=== PATIENT | female | born 1985 | race Caucasian/White ===

== ENCOUNTER 2019-06-23 12:54 | Inpatient (IN) | payer BC ==
[2019-06-23 13:52] VITALS: BMI 24.3
--- NOTE | 2019-06-23 14:49 | HP ---
CIWA Score Nausea/Vomitin-No Nausea/No Vomiting Muscle Tremors: 2 Anxiety: 4-Mod. Anxious/Guarded Agitation: 4-Moderately Restless Paroxysmal Sweats: 1-Minimal Palms Moist Orientation: 0-Oriented Tacttile Disturbances: 1-Very Mild Itch/Numbness Auditory Disturbances: 0-None Visual Disturbances: 1-Very Mild Sensitivity Headache: 3-Moderate CIWA-Ar Total Score: 16 - Admission Criteria OASAS Guidelines: Admission for Medically Managed Detox: Requires at least one of the followin. CIWA greater than 12 2. Seizures within the past 24 hours 3. Delirium tremens within the past 24 hours 4. Hallucinations within the past 24 hours 5. Acute intervention needed for co occurring medical disorder 6. Acute intervention needed for co occurring psychiatric disorder 7. Severe withdrawal that cannot be handled at a lower level of care (continued vomiting, continued diarrhea, abnormal vital signs) requiring intravenous medication and/or fluids 8. Patient presents the following: CIWA greater than 12 Admission Criteria Met: Admission criteria met Admission ROS [facility] Chief Complaint: alcohol detox Allergies/Adverse Reactions: Allergies Allergy/AdvReac Type Severity Reaction Status Date / Time No Known Allergies Allergy Verified 06/23/19 13:43 History of Present Illness: Patient is a 33 yo female with hx of alcohol, marijuana and cocaine dependence is here seeking inpatient alcohol detox d/t [facility], reports first time seeking treatment. PMHX: anemia and Eczema. Psych: major depressive d/o. Reports hx of suicide attempt x 1. Denies SI/HI at this time. Exam Limitations: No Limitations - Ebola screening Have you traveled outside of the country in the last 21 days: No Have you had contact with anyone from an Ebola affected area: No Do you have a fever: No - Review of Systems Constitutional: Chills, Loss of Appetite, Other (anxious, restless) EENT: reports: No Symptoms Reported Respiratory: reports: No Symptoms reported Cardiac: reports: No Symptoms Reported GI: reports: Poor Appetite, Poor Fluid Intake, Indigestion : reports: No Symptoms Reported Musculoskeletal: reports: Back Pain Integumentary: reports: Rash (left back pf leg d/t sczema) Neuro: reports: Headache Endocrine: reports: No Symptoms Reported Hematology: reports: No Symptoms Reported Psychiatric: reports: Orientated x3, Anxious Other Systems: Reviewed and Negative Patient History - Patient Medical History Hx Anemia: Yes Hx Asthma: No Hx Chronic Obstructive Pulmonary Disease (COPD): No Hx Cancer: No Hx Cardiac Disorders: No Hx Congestive Heart Failure: No Hx Hypertension: No Hx Hypercholesterolemia: No Hx Pacemaker: No HX Cerebrovascular Accident: No Hx Seizures: No Hx Dementia: No Hx Diabetes: No Hx Gastrointestinal Disorders: No Hx Liver Disease: No Hx Genitourinary Disorders: No Hx Sexually Transmitted Disorders: No Hx Renal Disease (ESRD): No Hx Thyroid Disease: No Hx Human Immunodeficiency Virus (HIV): No Hx Hepatitis C: No Hx Depression: Yes Hx Suicide Attempt: Yes (x1 in 2017) Hx Bipolar Disorder: No Hx Schizophrenia: No - Patient Surgical History Past Surgical History: Yes Other Surgical History: scoliosis, right dumb fx - PPD History Previous Implant?: No PPD to be Administered?: Yes - Reproductive History Patient is a Female of Child Bearing Age (11 -55 yrs old): Yes Last Menstrual Period: 06/03/19 Patient : No - Smoking Cessation Smoking history: Current every day smoker Have you smoked in the past 12 months: Yes Aproximately how many cigarettes per day: 20 Hx Chewing Tobacco Use: No Initiated information on smoking cessation: Yes 'Breaking Loose' booklet given: 06/23/19 - Substance & Tx. History Hx Alcohol Use: Yes Hx Substance Use: Yes Substance Use Type: Cocaine, Marijuana - Substances abused Cocaine Substance route: Inhalation Frequency: 3-6 times per week Amount used: $200 Age of first use: 28 Date of last use: 06/23/19 Alcohol Substance route: Oral Frequency: 3-6 times per week Amount used: 12 beers x 24 oz Age of first use: 17 (increase drinking to currenty amount in past four years ) Date of last use: 06/23/19 Family Disease History - Family Disease History Family Disease History: Diabetes: Father (alcoholism, cancer deacease ), Mother (cancer ), CA: Father, Mother, Other: Father Admission Physical Exam BHS - Vital Signs Vital Signs: Vital Signs - 24 hr 06/23/19 13:46 Temperature 99.0 F Pulse Rate 107 H Respiratory 20 Rate Blood Pressure 134/77 - Physical General Appearance: Yes: Appropriately Dressed, Thin, Anxious, Other (flushed) HEENTM: Yes: EOMI, Hearing grossly Normal, Normal ENT Inspection, Pharynx Normal Respiratory: Yes: Chest Non-Tender, Lungs Clear, Normal Breath Sounds, No Respiratory Distress, No Accessory Muscle Use Neck: Yes: Within Normal Limits Breast: Yes: Breast Exam Deferred Cardiology: Yes: Regular Rhythm, Tachycardia Abdominal: Yes: Normal Bowel Sounds, Non Tender, Flat, Soft Genitourinary: Yes: Within Normal Limits Back: Yes: Normal Inspection Musculoskeletal: Yes: full range of Motion, Gait Steady, Pelvis Stable Extremities: Yes: Normal Capillary Refill, Normal Inspection, Normal Range of Motion, Non-Tender Neurological: Yes: university controller II-XII NML intact, Fully Oriented, Alert, Motor Strength 5/5, Depressed Affect Integumentary: Yes: Normal Color, Warm, Rash (back left knee no cellulitis) Lymphatic: Yes: Within Normal Limits - Diagnostic (1) Alcohol dependence with uncomplicated withdrawal Current Visit: Yes Status: Acute (2) Cocaine dependence, uncomplicated Current Visit: Yes Status: Acute (3) Nicotine dependence Current Visit: Yes Status: Chronic Qualifiers: Nicotine product type: cigarettes (4) Eczema Current Visit: Yes Status: Chronic Cleared for Admission S - Detox or Rehab [facility] Level of Care: Medically Managed Detox Regimen/Protocol: Librium Breathalyzer - Breathalyzer Breathalyzer: 0.058 Urine Drug Screen - Test Device Lot number: [id number] Expiration date: 03/25/21 - Control Is test valid?: Yes - Results Drug screen NEGATIVE: No Urine drug screen results: THC-Marijuana, CHARITY-Cocaine Inpatient Rehab Admission - Rehab Decision to Admit Inpatient rehab admission?: No
[2019-06-23] MEDS ORDERED: IBUPROFEN 400 MG TABLET (FP) PO PRN (14:52)
[2019-06-23] MEDS ORDERED: BISMUTH SUBSALICYLATE 262 MG/15 ML BTL PO PRN (14:52)
[2019-06-23] MEDS ORDERED: chlordiazePOXIDE HCL 25 MG CAPSULE PO PRN (14:52)
[2019-06-23] MEDS ORDERED: ACETAMINOPHEN 325 MG TABLET (FP) PO PRN ×2 (14:52)
[2019-06-23] MEDS ORDERED: MAG HYDROX/AL HYDROX/SIMETH 30 ML UNIT-DOSE CUP PO PRN (14:52)
[2019-06-23] MEDS ORDERED: MAGNESIUM CITRATE 300 ML BOTTLE PO PRN (14:52)
[2019-06-23] MEDS ORDERED: MAGNESIUM HYDROX 2400MG/30ML ORAL SUSPENSION 30 ML CUP PO PRN (14:52)
[2019-06-23] MEDS ORDERED: MENTHOL/PHENOL 1 EACH UD MM PRN (14:52)
[2019-06-23] MEDS ORDERED: MELATONIN 5 MG TABLETS PO PRN (14:52)
[2019-06-23] MEDS ORDERED: NICOTINE POLACRILEX 2 MG GUM BUC PRN (14:52)
[2019-06-23] MEDS: chlordiazePOXIDE HCL 25 MG CAPSULE PO SCH ×2 (17:17→22:12)
[2019-06-23] MEDS: THIAMINE HCL 100 MG TABLET (FP) PO SCH (22:12)
[2019-06-24] MEDS: chlordiazePOXIDE HCL 25 MG CAPSULE PO SCH ×4 (05:57→22:20)
[2019-06-24 10:00] LABS: HEMATOCRIT 36.6 % (32.4-45.2); HEMOGLOBIN 12.3 GM/dL (10.7-15.3); MCHC 33.7 g/dl (32.0-36.0); MEAN CELL VOLUME 89.1 fl (80-96); MEAN PLT VOLUME 7.1 fl (7.5-11.1); PLATELET COUNT 363 K/MM3 (134-434); RDW 14.6 % (11.6-15.6); WHITE BLOOD COUNT 5.1 K/mm3 (4.0-10.0)
[2019-06-24] MEDS: PRENATAL VITAMINS W/ FOLIC ACID TABLET (FP) PO SCH (10:04)
[2019-06-24] MEDS: NICOTINE 14 MG/24 HOURS TOPICAL PATCH TD SCH (10:04)
[2019-06-24 10:06] LABS: ALBUMIN 3.3 g/dl (3.4-5.0); BILIRUBIN,TOTAL 1.6 mg/dL (0.2-1); BLOOD UREA NITROGEN 9.6 mg/dL (7-18); CALCIUM 8.6 mg/dL (8.5-10.1); CREATININE 0.7 mg/dL (0.55-1.3); POTASSIUM 3.8 mmol/L (3.5-5.1); TOT PROT 6.1 g/dl (6.4-8.2)
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
[2019-06-24] MEDS: ESCITALOPRAM OXALATE 20 MG TABLET (FP) PO SCH (11:36)
--- NOTE | 2019-06-24 11:54 | EKG ---
Test Reason : Blood Pressure : / mmHG Vent. Rate : 091 BPM Atrial Rate : 091 BPM P-R Int : 154 ms QRS Dur : 082 ms QT Int : 398 ms P-R-T Axes : 050 -07 042 degrees QTc Int : 489 ms NORMAL SINUS RHYTHM POSSIBLE LEFT ATRIAL ENLARGEMENT NONSPECIFIC T WAVE ABNORMALITY PROLONGED QT ABNORMAL ECG NO PREVIOUS ECGS AVAILABLE Confirmed by SHINE MOSELEY MD ([id number]) on 06/24/2019 11:54:04 AM Referred By: Confirmed By:SHINE MOSELEY MD
--- NOTE | 2019-06-24 12:56 | PN ---
[facility] CIWA - CIWA Score Nausea/Vomitin-No Nausea/No Vomiting Muscle Tremors: 3 Anxiety: 3 Agitation: 4-Moderately Restless Paroxysmal Sweats: 3 Orientation: 0-Oriented Tacttile Disturbances: 0-None Auditory Disturbances: 0-None Visual Disturbances: 0-None Headache: 0-None Present CIWA-Ar Total Score: 13 S Progress Note (SOAP) Subjective: headache sweats chills shakes interrupted sleep Objective: 06/24/19 12:55 Vital Signs Temperature 97.1 F L 06/24/19 12:41 Pulse Rate 78 06/24/19 12:41 Respiratory Rate 17 06/24/19 12:41 Blood Pressure 118/58 L 06/24/19 12:41 O2 Sat by Pulse Oximetry (%) Laboratory Tests 06/23/19 06/24/19 06/24/19 14:29 07:30 07:30 WBC 5.1 RBC 4.10 Hgb 12.3 Hct 36.6 MCV 89.1 MCH 30.0 MCHC 33.7 RDW 14.6 Plt Count 363 MPV 7.1 L Sodium 141 Potassium 3.8 Chloride 108 H Carbon Dioxide 27 Anion Gap 6 L BUN 9.6 Creatinine 0.7 Est GFR (CKD-EPI)AfAm 131.02 Est GFR (CKD-EPI)NonAf 113.04 Random Glucose 72 L Calcium 8.6 Total Bilirubin 1.6 H AST 36 ALT 57 Alkaline Phosphatase 55 Total Protein 6.1 L Albumin 3.3 L POC Urine HCG, Qual Negative RPR Titer 06/24/19 07:30 WBC RBC Hgb Hct MCV MCH MCHC RDW Plt Count MPV Sodium Potassium Chloride Carbon Dioxide Anion Gap BUN Creatinine Est GFR (CKD-EPI)AfAm Est GFR (CKD-EPI)NonAf Random Glucose Calcium Total Bilirubin AST ALT Alkaline Phosphatase Total Protein Albumin POC Urine HCG, Qual RPR Titer Nonreactive labs noted aaox3 ambulating no acute distress Assessment: 06/24/19 12:55 withdrawal sx Plan: continue detox increase fluids tylenol/motrin prn
[2019-06-24] MEDS: MELATONIN 5 MG TABLETS PO PRN (22:23)
[2019-06-24] MEDS: THIAMINE HCL 100 MG TABLET (FP) PO SCH (22:23)
[2019-06-24] MEDS: METHOCARBAMOL 500 MG TABLET PO PRN (22:25)
[2019-06-25] MEDS: chlordiazePOXIDE HCL 25 MG CAPSULE PO SCH ×4 (05:53→22:24)
[2019-06-25] MEDS: PRENATAL VITAMINS W/ FOLIC ACID TABLET (FP) PO SCH (10:11)
[2019-06-25] MEDS: NICOTINE 14 MG/24 HOURS TOPICAL PATCH TD SCH (10:11)
[2019-06-25] MEDS: ESCITALOPRAM OXALATE 20 MG TABLET (FP) PO SCH (10:11)
--- NOTE | 2019-06-25 11:00 | PN ---
S CIWA - CIWA Score Nausea/Vomitin-No Nausea/No Vomiting Muscle Tremors: 2 Anxiety: 3 Agitation: 0-Normal Activity Paroxysmal Sweats: 3 Orientation: 0-Oriented Tacttile Disturbances: 0-None Auditory Disturbances: 0-None Visual Disturbances: 0-None Headache: 2-Mild CIWA-Ar Total Score: 10 S Progress Note (SOAP) Subjective: c/o sweats, anxiety, interrupted, and headache. Objective: 06/25/19 11:01 Vital Signs 06/25/19 06/25/19 06/25/19 03:30 07:15 09:46 Temperature 97.7 F 96.7 F L Pulse Rate 82 83 Respiratory 18 16 18 Rate Blood Pressure 129/57 L 123/85 Lab Results WBC 5.1 K/mm3 (4.0-10.0) 06/24/19 07:30 RBC 4.10 M/mm3 (3.60-5.2) 06/24/19 07:30 Hgb 12.3 GM/dL (10.7-15.3) 06/24/19 07:30 Hct 36.6 % (32.4-45.2) 06/24/19 07:30 MCV 89.1 fl (80-96) 06/24/19 07:30 MCHC 33.7 g/dl (32.0-36.0) 06/24/19 07:30 RDW 14.6 % (11.6-15.6) 06/24/19 07:30 Plt Count 363 K/MM3 (134-434) 06/24/19 07:30 Sodium 141 mmol/L (136-145) 06/24/19 07:30 Potassium 3.8 mmol/L (3.5-5.1) 06/24/19 07:30 Chloride 108 mmol/L (98-107) H 06/24/19 07:30 Carbon Dioxide 27 mmol/L (21-32) 06/24/19 07:30 Anion Gap 6 MMOL/L (8-16) L 06/24/19 07:30 BUN 9.6 mg/dL (7-18) 06/24/19 07:30 Creatinine 0.7 mg/dL (0.55-1.3) 06/24/19 07:30 Random Glucose 72 mg/dL (74-106) L 06/24/19 07:30 Calcium 8.6 mg/dL (8.5-10.1) 06/24/19 07:30 Labs noted. Assessment: 06/25/19 11:01 AOX3, in no acute respiratory distress. Full ROM, ambulating in the unit. withdrawal symptoms. Plan: continue detox.
--- NOTE | 2019-06-25 11:35 | EKG ---
Test Reason : Blood Pressure : / mmHG Vent. Rate : 065 BPM Atrial Rate : 065 BPM P-R Int : 162 ms QRS Dur : 074 ms QT Int : 410 ms P-R-T Axes : 048 033 042 degrees QTc Int : 426 ms SINUS RHYTHM WITH MARKED SINUS ARRHYTHMIA OTHERWISE NORMAL ECG WHEN COMPARED WITH ECG OF 23-JUN-2019 15:23, NONSPECIFIC T WAVE ABNORMALITY NO LONGER EVIDENT IN ANTERIOR LEADS QT HAS SHORTENED Confirmed by PHYLLIS CRAIN, MARIELLE ([id number]) on 06/25/2019 11:34:53 AM Referred By: Confirmed By:MARIELLE FERGUSON MD
[2019-06-25] MEDS: hydrOXYzine PAMOATE 25 MG CAPSULE (FP) PO PRN ×2 (14:07→22:24)
[2019-06-25] MEDS: METHOCARBAMOL 500 MG TABLET PO PRN (22:23)
[2019-06-25] MEDS: THIAMINE HCL 100 MG TABLET (FP) PO SCH (22:24)
[2019-06-25] MEDS: MELATONIN 5 MG TABLETS PO PRN (22:24)
[2019-06-26] MEDS ORDERED: chlordiazePOXIDE HCL 10 MG CAPSULE PO PRN
[2019-06-26] MEDS: chlordiazePOXIDE HCL 10 MG CAPSULE PO SCH ×2 (05:27→10:35)
[2019-06-26] MEDS: NICOTINE 14 MG/24 HOURS TOPICAL PATCH TD SCH (10:35)
[2019-06-26] MEDS: ESCITALOPRAM OXALATE 20 MG TABLET (FP) PO SCH (10:35)
[2019-06-26] MEDS: PRENATAL VITAMINS W/ FOLIC ACID TABLET (FP) PO SCH (10:35)
[2019-06-26] MEDS: hydrOXYzine PAMOATE 25 MG CAPSULE (FP) PO PRN ×3 (10:37→22:36)
[2019-06-26] MEDS ORDERED: hydrOXYzine PAMOATE 25 MG CAPSULE (FP) PO ONE (12:15)
--- NOTE | 2019-06-26 12:25 | PN ---
S CIWA - CIWA Score Nausea/Vomitin-No Nausea/No Vomiting Muscle Tremors: 2 Anxiety: 4-Mod. Anxious/Guarded Agitation: 3 Paroxysmal Sweats: 2 Orientation: 0-Oriented Tacttile Disturbances: 0-None Auditory Disturbances: 0-None Visual Disturbances: 0-None Headache: 2-Mild CIWA-Ar Total Score: 13 BHS Progress Note (SOAP) Subjective: Headache (pain scale 7/10) lights bothers eyes (denies migraine), feeling dizzy (hasn't been drinking enough water as per patient), chills, sweating, interrupted sleep. Patient stated this is the first time she was admitted to detox and that she always detox herself at home. Patient stated she never took librium before and it makes her feel really drowsy and that she is still having lots of anxiety and tremors. Patient stated she was taking xanax at home until her lexapro kicks in and that she last took xanax on Thursday. Patient would like librium protocol changed to valium. Objective: 06/26/19 12:22 Last Vital Signs Temp Pulse Resp BP Pulse Ox 97.9 F 73 16 110/66 06/26/19 09:25 06/26/19 09:25 06/26/19 09:25 06/26/19 09:25 Laboratory Tests 06/23/19 06/24/19 06/24/19 14:29 07:30 07:30 WBC 5.1 RBC 4.10 Hgb 12.3 Hct 36.6 MCV 89.1 MCH 30.0 MCHC 33.7 RDW 14.6 Plt Count 363 MPV 7.1 L Sodium 141 Potassium 3.8 Chloride 108 H Carbon Dioxide 27 Anion Gap 6 L BUN 9.6 Creatinine 0.7 Est GFR (CKD-EPI)AfAm 131.02 Est GFR (CKD-EPI)NonAf 113.04 Random Glucose 72 L Calcium 8.6 Total Bilirubin 1.6 H AST 36 ALT 57 Alkaline Phosphatase 55 Total Protein 6.1 L Albumin 3.3 L POC Urine HCG, Qual Negative RPR Titer 06/24/19 07:30 WBC RBC Hgb Hct MCV MCH MCHC RDW Plt Count MPV Sodium Potassium Chloride Carbon Dioxide Anion Gap BUN Creatinine Est GFR (CKD-EPI)AfAm Est GFR (CKD-EPI)NonAf Random Glucose Calcium Total Bilirubin AST ALT Alkaline Phosphatase Total Protein Albumin POC Urine HCG, Qual RPR Titer Nonreactive Labs reviewed: total bilirubin 1.6 Assessment: 06/26/19 12:25 Withdrawal sxs Noted with elevated bilirubin Plan: Continue detox Encouraged PO water hydation Discontinue librium protocol Start valium protocol 5mg PO x 1 this evening then 5mg PO bid tomorrow then 5mg PO x 1 dose on Thursday Vistaril 25mg PO x 1 dose Check CMP in AM Continue to monitor patient Elevated bilirubin: repeat serum total bilirubin
[2019-06-26] MEDS: diazePAM 5 MG TABLET PO PRN ×2 (16:27→22:36)
[2019-06-26] MEDS ORDERED: diazePAM 5 MG TABLET PO ONE (19:00)
[2019-06-26] MEDS: THIAMINE HCL 100 MG TABLET (FP) PO SCH (22:32)
[2019-06-26] MEDS: METHOCARBAMOL 500 MG TABLET PO PRN (22:36)
[2019-06-27] MEDS ORDERED: chlordiazePOXIDE HCL 10 MG CAPSULE PO SCH (05:00)
[2019-06-27 09:42] LABS: ALBUMIN 3.3 g/dl (3.4-5.0); BILIRUBIN,TOTAL 0.5 mg/dL (0.2-1); BLOOD UREA NITROGEN 11.2 mg/dL (7-18); CALCIUM 8.8 mg/dL (8.5-10.1); CREATININE 0.7 mg/dL (0.55-1.3); POTASSIUM 4.4 mmol/L (3.5-5.1); TOT PROT 6.1 g/dl (6.4-8.2)
[2019-06-27] MEDS ORDERED: diazePAM 5 MG TABLET PO SCH (10:00)
[2019-06-27] MEDS: PRENATAL VITAMINS W/ FOLIC ACID TABLET (FP) PO SCH (10:23)
[2019-06-27] MEDS: ESCITALOPRAM OXALATE 20 MG TABLET (FP) PO SCH (10:23)
[2019-06-27] MEDS: NICOTINE 14 MG/24 HOURS TOPICAL PATCH TD SCH (10:23)
--- NOTE | 2019-06-27 12:32 | PN ---
S CIWA - CIWA Score Nausea/Vomitin-No Nausea/No Vomiting Muscle Tremors: 2 Anxiety: 1-Mildly Anxious Agitation: 0-Normal Activity Paroxysmal Sweats: 1-Minimal Palms Moist Orientation: 0-Oriented Tacttile Disturbances: 0-None Auditory Disturbances: 0-None Visual Disturbances: 0-None Headache: 0-None Present CIWA-Ar Total Score: 4 BHS Progress Note (SOAP) Subjective: sweats mild shakes interrupted sleep Objective: 06/27/19 12:20 Vital Signs Temperature 97.2 F L 06/27/19 10:00 Pulse Rate 80 06/27/19 10:00 Respiratory Rate 17 06/27/19 10:00 Blood Pressure 112/68 06/27/19 10:00 O2 Sat by Pulse Oximetry (%) aaox3 ambulating no acute distress Assessment: 06/27/19 12:32 withdrawal sx Plan: continue detox increase fluids d/c in am
[2019-06-27] MEDS ORDERED: diazePAM 5 MG TABLET PO PRN (12:34)
[2019-06-27] MEDS ORDERED: HYDROCORTISONE 1% TOPICAL CREAM 30 GM TUBE TP PRN (12:58)
[2019-06-27] MEDS: hydrOXYzine PAMOATE 25 MG CAPSULE (FP) PO PRN (16:53)
[2019-06-27] MEDS: THIAMINE HCL 100 MG TABLET (FP) PO SCH (22:24)
[2019-06-27] MEDS: MELATONIN 5 MG TABLETS PO PRN (22:24)
[2019-06-27] MEDS: METHOCARBAMOL 500 MG TABLET PO PRN (22:26)
[2019-06-28] MEDS ORDERED: chlordiazePOXIDE HCL 10 MG CAPSULE PO ONE (05:00)
[2019-06-28] MEDS ORDERED: diazePAM 5 MG TABLET PO ONE (06:00)
--- NOTE | 2019-06-28 08:59 | DS ---
[facility] Detox Discharge Summary Admission Date: 06/23/19 Discharge Date: 06/28/19 - History Present History: Alcohol Dependence, Cocaine Dependence - Physical Exam Results Vital Signs: Vital Signs Temperature 97.7 F 06/28/19 06:00 Pulse Rate 76 06/28/19 06:00 Respiratory Rate 18 06/28/19 06:00 Blood Pressure 105/72 06/28/19 06:00 O2 Sat by Pulse Oximetry (%) Pertinent Admission Physical Exam Findings: pt arrived in withdrawal Laboratory Tests 06/23/19 06/24/19 06/24/19 14:29 07:30 07:30 WBC 5.1 RBC 4.10 Hgb 12.3 Hct 36.6 MCV 89.1 MCH 30.0 MCHC 33.7 RDW 14.6 Plt Count 363 MPV 7.1 L Sodium 141 Potassium 3.8 Chloride 108 H Carbon Dioxide 27 Anion Gap 6 L BUN 9.6 Creatinine 0.7 Est GFR (CKD-EPI)AfAm 131.02 Est GFR (CKD-EPI)NonAf 113.04 Random Glucose 72 L Calcium 8.6 Total Bilirubin 1.6 H AST 36 ALT 57 Alkaline Phosphatase 55 Total Protein 6.1 L Albumin 3.3 L POC Urine HCG, Qual Negative RPR Titer 06/24/19 06/27/19 07:30 07:30 WBC RBC Hgb Hct MCV MCH MCHC RDW Plt Count MPV Sodium 140 Potassium 4.4 Chloride 109 H Carbon Dioxide 28 Anion Gap 3 L BUN 11.2 Creatinine 0.7 Est GFR (CKD-EPI)AfAm 131.02 Est GFR (CKD-EPI)NonAf 113.04 Random Glucose 74 Calcium 8.8 Total Bilirubin 0.5 AST 17 ALT 37 Alkaline Phosphatase 50 Total Protein 6.1 L Albumin 3.3 L POC Urine HCG, Qual RPR Titer Nonreactive today pt is aaox3 ambulating no acute distress no s/s of withdrawals - Treatment Hospital Course: Detox Protocol Followed, Detoxed Safely, Responded well, Discharged Condition Good, Rehab Referral Accepted Patient has Accepted a Rehab Referral to: referred to [facility] - Medication Discharge Medications: Ambulatory Orders Escitalopram Oxalate [Lexapro -] 20 mg PO DAILY 06/23/19 - Diagnosis (1) Alcohol dependence with uncomplicated withdrawal Current Visit: Yes Status: Chronic (2) Cocaine dependence, uncomplicated Current Visit: Yes Status: Chronic (3) Substance-induced anxiety disorder Current Visit: Yes Status: Acute (4) Substance-induced sleep disorder Current Visit: Yes Status: Acute (5) Eczema Current Visit: Yes Status: Chronic Qualifiers: Eczema type: unspecified Qualified Code(s): L30.9 - Dermatitis, unspecified (6) MDD (major depressive disorder) Current Visit: Yes Status: Chronic (7) Nicotine dependence Current Visit: Yes Status: Chronic Qualifiers: Nicotine product type: cigarettes Substance use status: uncomplicated Qualified Code(s): F17.210 - Nicotine dependence, cigarettes, uncomplicated - AMA Did Patient Leave Against Medical Advice: No
[2019-06-28 09:25] VITALS: BP 101/71; PULSE 96; TEMP 97.2
[2019-06-28] MEDS: ESCITALOPRAM OXALATE 20 MG TABLET (FP) PO SCH (10:26)
[2019-06-28] MEDS: PRENATAL VITAMINS W/ FOLIC ACID TABLET (FP) PO SCH (10:26)
[2019-06-28] MEDS: NICOTINE 14 MG/24 HOURS TOPICAL PATCH TD SCH (10:26)
== END 2019-06-28 10:46 | disposition home or self-care (01) | DRG 897 ==
LOC: YASAS 12:54 → Y6N 15:08
PROVIDERS: ADMIT Surgery; ATTEND Surgery
PROC: HZ2ZZZZ Detoxification Services for Substance Abuse Treatment (ICD-10-PCS; principal; 2019-06-23)
DX: F10.230 Alcohol dependence with withdrawal, uncomplicated (principal); F14.20 Cocaine dependence, uncomplicated; F19.280 Other psychoactive substance dependence with psychoactive substance-induced anxiety disorder; F19.282 Other psychoactive substance dependence with psychoactive substance-induced sleep disorder; F33.9 Major depressive disorder, recurrent, unspecified; D61.9 Aplastic anemia, unspecified; F17.210 Nicotine dependence, cigarettes, uncomplicated; E80.6 Other disorders of bilirubin metabolism; L30.9 Dermatitis, unspecified; Z91.5 Personal history of self-harm
CPT/HCPCS: 36415; 80053; 81025; 85027; 86480; 86593; 93005; 93010